=== PATIENT | female | born 1995 | race Hispanic/Latino ===

== ENCOUNTER 2019-12-20 14:59 | Emergency (ER) | payer MEDICAID | END 2019-12-20 15:54 | disposition home or self-care (01) | LOC: EDH 14:59 | DX: H65.02 Acute serous otitis media, left ear (principal); H60.392 Other infective otitis externa, left ear; Z88.0 Allergy status to penicillin ==

== ENCOUNTER 2022-11-13 21:46 | Emergency (ER) | payer OTHER, MEDICAID ==
[~2022-11-13] VITALS: Ht 160 cm; Wt 57.2 kg
[2022-11-13 22:01] VITALS: BP 119/83; PULSE 92; RESP 18; O2SAT 100
[2022-11-13] MEDS ORDERED: KETOROLAC 60 MG VIAL (30MG/ML) IM ONE (23:00)
[2022-11-13] MEDS ORDERED: CYCL10TA16 PO (23:40)
[2022-11-13] MEDS ORDERED: IBUP-2070 PO (23:40)
== END 2022-11-13 23:51 | disposition home or self-care (01) ==
LOC: EDH 21:46
DX: S16.1XXA Strain of muscle, fascia and tendon at neck level, initial encounter (principal); S39.012A Strain of muscle, fascia and tendon of lower back, initial encounter; S80.02XA Contusion of left knee, initial encounter; Z88.0 Allergy status to penicillin; V89.2XXA Person injured in unspecified motor-vehicle accident, traffic, initial encounter; Y93.I9 Activity, other involving external motion; Y92.488 Other paved roadways as the place of occurrence of the external cause; Y99.8 Other external cause status
CPT/HCPCS: 99284; 81025; 72040; 73562; 72100; 96372; J1885